=== PATIENT | female | born 1960 | race Two or more races ===

== ENCOUNTER 2020-02-10 16:16 | Inpatient (IN) | payer SELFPAY ==
[~2020-02-10] VITALS: Ht 162.6 cm; Wt 82.0 kg
[2020-02-10] MEDS ORDERED: VERAPAMIL 2.5 MG/ML, 2ML ONE (17:22)
[2020-02-10] MEDS ORDERED: PROPOFOL 10 MG/ML, 20ML ONE (17:22)
[2020-02-10] MEDS ORDERED: FENTANYL PF 100 MCG/2ML ONE (17:23)
[2020-02-10] MEDS ORDERED: MIDAZOLAM 1 MG/ML, 2ML ONE (17:55)
--- NOTE | 2020-02-10 18:44 | NUR ---
SEE PROCEDURAL SEDATION FORMS
--- NOTE | 2020-02-10 18:57 | NUR ---
REPORT OF PT FROM DWAINE DOWNING AND ASSUMING CARE OF PT AT THIS TIME. PT RESTING IN [facility] WITH STABLE VS AND CALL LIGHT WITHIN REACH.
[2020-02-10] MEDS ORDERED: PLEASE ENTER ALLERGIES MC SCH (19:00)
[2020-02-10] MEDS ORDERED: MIDAZOLAM 1 MG/ML, 2ML IVPush ONE (19:00)
[2020-02-10] MEDS ORDERED: FENTANYL PF 100 MCG/2ML IVPush ONE (19:00)
[2020-02-10] MEDS ORDERED: ONDANSETRON 2MG/ML, 2ML IVPush ONE ×2 (19:00→20:00)
--- NOTE | 2020-02-10 19:30 | NUR ---
AWAITING D/C OF PT AT THIS TIME. PER DR GRIFFIN, ORTHO TO CALL TO DISCUSS PT DISPO PRIOR TO D/C
[2020-02-10] MEDS ORDERED: ONDANSETRON ODT 4 MG ONE (19:49)
[2020-02-10] MEDS ORDERED: MORPHINE SULFATE 4 MG/ML, 1ML ONE (19:49)
--- NOTE | 2020-02-10 19:55 | NUR ---
PT MEDICATED PER MAR AT THIS TIME FOR PAIN. PT ASSISTED ON TO BED VALDEZ TO VOID AT THIS TIME WITH ASSISTANCE FROM DWAINE HERNANDEZ.
[2020-02-10] MEDS ORDERED: MORPHINE SULFATE 4 MG/ML, 1ML IVPush PRN ×2 (20:00→20:30)
[2020-02-10] MEDS ORDERED: morphine SULFATE 10 MG/ML, 1ML IVPush PRN (20:30)
[2020-02-10] MEDS ORDERED: ACETAMINOPHEN 325 MG TABLET PO PRN (20:30)
[2020-02-10] MEDS ORDERED: PROMETHAZINE 25 MG/ML, 1ML IM PRN (20:30)
[2020-02-10] MEDS ORDERED: SODIUM CHLORIDE FLUSH 10ML SYR IVF PRN (20:30)
[2020-02-10] MEDS ORDERED: ONDANSETRON 2MG/ML, 2ML IVPush PRN ×2 (20:30)
[2020-02-10] MEDS ORDERED: ONDANSETRON ODT 4 MG PO PRN (20:30)
[2020-02-10] MEDS: SODIUM CHLORIDE 0.9% 1,000 ML IV SCH (20:30)
[2020-02-10] MEDS ORDERED: POLYETHYLENE GLYCOL 17 GM PACKET PO PRN (20:30)
[2020-02-10] MEDS ORDERED: OXYcodone IR 5MG TABLET PO PRN (20:30)
[2020-02-10] MEDS ORDERED: BISACODYL 10 MG SUPP PR PRN (20:30)
[2020-02-10 20:50] LABS: BASOPHILS % (AUTO) 1 % (0-1); EOSINOPHILS % (AUTO) 1 % (1-7); LYMPHOCYTES % (AUTO) 16 % (22-44); MEAN CORPUSCULAR HEMOGLOBIN 28.2 pg (27.0-34.8); MEAN CORPUSCULAR HGB CONC 32.8 g/dL (32.4-35.8); MEAN PLATELET VOLUME 6.8 fL (7.4-10.4); MONOCYTES % (AUTO) 5 % (2-9); NEUTROPHILS % (AUTO) 78 % (42-75); PLATELET COUNT 465 x10^3/uL (130-400); RED BLOOD COUNT 4.41 x10^6/uL (3.82-5.3); RED CELL DISTRIBUTION WIDTH 13.5 % (9.6-15.2)
[2020-02-10 21:03] LABS: ALBUMIN 3.5 g/dL (3.4-5.0); ANION GAP 5 mmol/L (5-15); CALCIUM 8.7 mg/dL (8.5-10.1); CHLORIDE 107 mmol/L (98-107); CREATININE 0.72 mg/dL (0.55-1.02)
[2020-02-10 21:06] LABS: MD NO
[2020-02-10 21:13] LABS: FREE T4 (FREE THYROXINE) 1.25 ng/dL (0.76-1.46)
--- NOTE | 2020-02-10 21:39 | NUR ---
PT ASSISTED TO THE BED VALDEZ TO VOID AT THIS TIME.
--- NOTE | 2020-02-10 22:12 | NUR ---
PT RESTING IN [facility] WITH CALL LIGHT WITHIN REACH. PT VSS AND UPDATED IN EMR AT THIS TIME.
--- NOTE | 2020-02-10 23:38 | NUR ---
REPORT OF PT TO DWAINE KNIGHT. ALL QUESTIONS ANSWERED. WILL ATTEMPT TO CALL PT SPOUSE DRAKE FOR PT MEDICATION HISTORY. PT IS ASLEEP IN [facility] AT THIS TIME WITH NETTE AND CALL LIGHT WITHIN REACH.
--- NOTE | 2020-02-10 23:54 | NUR ---
LEFT FOR DRAKE, SPOUSE, AT [phone] TO UPDATE ABOUT PT ROOM ASSIGNMENT AND MEDICATION HISTORY. REQUESTED A CALL BACK FROM DRAKE.
--- NOTE | 2020-02-11 00:13 | NUR ---
PT TRANSPORTED TO FLOOR BY [employer] MARKETING ANALYST VIA GURNEY AT THIS TIME.
[2020-02-11 00:39] VITALS: BP 154/83
[2020-02-11 01:22] VITALS: BP 154/83
[2020-02-11] MEDS: SODIUM CHLORIDE 0.9% 1,000 ML IV SCH ×2 (05:54→12:30)
[2020-02-11] MEDS: SENNA/DOCUSATE TABLET PO SCH (07:11)
[2020-02-11 07:14] VITALS: BP 151/80
[2020-02-11 07:18] LABS: BASOPHILS % (AUTO) 1 % (0-1); EOSINOPHILS % (AUTO) 2 % (1-7); LYMPHOCYTES % (AUTO) 27 % (22-44); MEAN CORPUSCULAR HEMOGLOBIN 28.1 pg (27.0-34.8); MEAN CORPUSCULAR HGB CONC 32.6 g/dL (32.4-35.8); MEAN PLATELET VOLUME 6.9 fL (7.4-10.4); MONOCYTES % (AUTO) 7 % (2-9); NEUTROPHILS % (AUTO) 64 % (42-75); PLATELET COUNT 437 x10^3/uL (130-400); RED BLOOD COUNT 4.18 x10^6/uL (3.82-5.3); RED CELL DISTRIBUTION WIDTH 13.8 % (9.6-15.2)
[2020-02-11 07:27] LABS: ALBUMIN 3.3 g/dL (3.4-5.0); ANION GAP 7 mmol/L (5-15); CALCIUM 8.5 mg/dL (8.5-10.1); CHLORIDE 109 mmol/L (98-107)
[2020-02-11 07:32] LABS: ALANINE AMINOTRANSFERASE 31 U/L (12-78); ALKALINE PHOSPHATASE 95 U/L (45-117); BILIRUBIN,TOTAL 0.4 mg/dL (0.2-1.0); CHOL/HDL RATIO 6.1; CHOLESTEROL, TOTAL 171 mg/dL (140-239); CREATININE 0.74 mg/dL (0.55-1.02); HDL CHOL % 16 % (28-40); HDL CHOLESTEROL (DIRECT) 28 mg/dL (40-60); LDL CHOLESTEROL,CALCULATED 123 mg/dL (54-169); LDL/HDL RATIO 4.4 (0.5-3.0); TOTAL PROTEIN 7.7 g/dL (6.4-8.2); TRIGLYCERIDES 101 mg/dL (50-200); VLDL CHOLESTEROL 20 mg/dL (0-25)
[2020-02-11 07:39] LABS: MD NO
[2020-02-11] MEDS ORDERED: BUPIVACAINE/PF 0.5% ONE ×2 (08:08→09:14)
[2020-02-11] MEDS ORDERED: EPINEPHRINE 1 MG/ML, 1ML ONE (08:08)
[2020-02-11] MEDS ORDERED: MIDAZOLAM 1 MG/ML, 2ML ONE (08:16)
[2020-02-11] MEDS ORDERED: FENTANYL PF 100 MCG/2ML ONE (08:16)
[2020-02-11] MEDS ORDERED: LORazepam 2 MG/ML, 1ML IVPush PRN (09:00)
[2020-02-11] MEDS ORDERED: ACETAMINOPHEN 325 MG TABLET PO PRN (09:00)
[2020-02-11] MEDS ORDERED: OXYcodone 5 MG/5 ML ORAL.SOL UDC PO PRN (09:00)
[2020-02-11] MEDS ORDERED: hydrALAzine 20 MG/ML, 1ML IV PRN (09:00)
[2020-02-11] MEDS ORDERED: HYDROmorphone 1 MG/ML, 1ML INJ IVPush PRN (09:00)
[2020-02-11] MEDS ORDERED: LABETALOL 5MG/ML, 20ML IV PRN (09:00)
[2020-02-11] MEDS ORDERED: PROMETHAZINE 25 MG/ML, 1ML IVPush PRN (09:00)
[2020-02-11] MEDS ORDERED: FENTANYL PF 100 MCG/2ML IV PRN (09:00)
[2020-02-11] MEDS ORDERED: MEPERIDINE/PF 25MG/0.5ML IVPush PRN (09:00)
[2020-02-11] MEDS ORDERED: PROPOFOL 10 MG/ML, 20ML ONE (09:14)
[2020-02-11] MEDS ORDERED: DEXAMETHASONE 4 MG/ML, 1ML ONE (09:14)
[2020-02-11] MEDS ORDERED: CEFAZOLIN 1,000 MG ONE ×2 (09:14→10:22)
[2020-02-11] MEDS ORDERED: LIDOCAINE-MPF 2% ,5ML ONE (09:14)
[2020-02-11] MEDS ORDERED: ONDANSETRON 2MG/ML, 2ML ONE (09:14)
[2020-02-11] MEDS ORDERED: KETOROLAC 30 MG/1 ML ONE (09:14)
[2020-02-11] MEDS ORDERED: EPHEDRINE 50 MG/ML, 1ML ONE (10:22)
[2020-02-11] MEDS ORDERED: PHENYLEPHRINE 10 MG/ML ONE (10:22)
[2020-02-11] MEDS ORDERED: OXYcodone 5 MG/5 ML ORAL.SOL UDC ONE (10:33)
[2020-02-11] MEDS ORDERED: LABETALOL 5MG/ML, 20ML ONE (10:47)
[2020-02-11 12:22] VITALS: BP 142/80
[2020-02-11] MEDS ORDERED: MAGNESIUM HYDROXIDE 8%, 30ML UDC PO PRN (13:30)
[2020-02-11] MEDS ORDERED: DOCUSATE 50 MG/5 ML, 10ML UDC PO PRN (13:30)
[2020-02-11] MEDS ORDERED: DIPHENHYDRAMINE 25 MG CAPSULE PO PRN (13:30)
[2020-02-11] MEDS ORDERED: ALUMINUM/MAG/SIMETHICONE 30 ML UDC PO PRN (13:30)
[2020-02-11] MEDS: D5%-LACTATED RINGERS 1,000 ML IV SCH (14:22)
[2020-02-11] MEDS ORDERED: CEFAZOLIN 2,000 MG in SODIUM CHLORIDE 0.9% 50 ML IV SCH (17:00)
[2020-02-11] MEDS: CEFAZOLIN 2,000 MG in SODIUM CHLORIDE 0.9% 50 ML IV SCH (19:53)
[2020-02-11 19:59] VITALS: BP 147/75
[2020-02-11 21:03] VITALS: BP 150/79
[2020-02-12 00:24] VITALS: BP 153/71
[2020-02-12] MEDS: CEFAZOLIN 2,000 MG in SODIUM CHLORIDE 0.9% 50 ML IV SCH ×2 (04:06→12:34)
[2020-02-12 04:20] VITALS: BP 140/69
[2020-02-12 07:46] VITALS: BP 149/74
[2020-02-12] MEDS ORDERED: MULTIVITAMIN 1 TABLET PO SCH (09:00)
[2020-02-12] MEDS: SENNA/DOCUSATE TABLET PO SCH (09:11)
[2020-02-12] MEDS ORDERED: METF-734 PO (10:36)
[2020-02-12] MEDS ORDERED: HYDR-3246 PO (10:36)
[2020-02-12] MEDS: D5%-LACTATED RINGERS 1,000 ML IV SCH (12:34)
[2020-02-12 13:36] VITALS: BP 133/73
[2020-02-12] MEDS ORDERED: ASPIRIN 81 MG TABLET EC PO SCH (21:00)
== END 2020-02-12 14:26 | disposition home or self-care (01) | DRG 494 ==
LOC: ED 18:33 → 3N 02-11 00:08 → ED 02-11 00:48 → 3N 02-11 00:48 → 4NE 02-11 20:28 → DCLOUNGE 02-12 14:09
PROVIDERS: ADMIT Internal Medicine; ATTEND Internal Medicine
PROC: 0QSG04Z Reposition Right Tibia with Internal Fixation Device, Open Approach (ICD-10-PCS; 2020-02-11)
PROC: 0QSG04Z Reposition Right Tibia with Internal Fixation Device, Open Approach (ICD-10-PCS; 2020-02-11)
PROC: 0QSJ04Z Reposition Right Fibula with Internal Fixation Device, Open Approach (ICD-10-PCS; principal; 2020-02-11 08:30)
DX: S82.851A Displaced trimalleolar fracture of right lower leg, initial encounter for closed fracture (principal); E66.9 Obesity, unspecified; E11.65 Type 2 diabetes mellitus with hyperglycemia; Z20.828 Contact with and (suspected) exposure to other viral communicable diseases; W08.XXXA Fall from other furniture, initial encounter; Z79.899 Other long term (current) drug therapy; Z68.31 Body mass index [BMI] 31.0-31.9, adult; Y93.89 Activity, other specified; Y92.89 Other specified places as the place of occurrence of the external cause; Y99.8 Other external cause status
CPT/HCPCS: 36415; 73610; 76000; J3490; J7121; S0020; 80048; 80053; 80061; 82040; 83036; 83735; 84439; 84443; 85025; 87635; 93005; G0378; J0171; J0690; J1100; J1885; J2250; J2405; J2704; J3010; J2270; J2370; J7030